=== PATIENT | male | born 1960 | race Caucasian/White ===

== ENCOUNTER 2022-03-23 06:40 | Emergency (ER) | payer OTHER ==
[2022-03-23 07:37] LABS: Urine Blood 1+ (Negative); Urine Glucose Negative (Negative); Urine Protein Negative (Negative); Urine Specific Gravity >=1.030 (1.005-1.030); Urine pH 5.5 (5.0-7.0)
[2022-03-23] MEDS ORDERED: NA CHLORIDE 0.9% 1,000 ML ONE (08:02)
[2022-03-23] MEDS ORDERED: MORPHINE 4 MG/ML SYR ONE (08:02)
[2022-03-23] MEDS ORDERED: ONDANSETRON 4 MG/2 ML VIAL ONE (08:02)
[2022-03-23 08:15] LABS: Absolute Lymphocytes (CBC) 0.9 K/uL (0.7-4.9); Hematocrit 42.4 % (39.6-49.0); Lymphocytes % 9.2 % (15.3-44.8); MCV 96.5 fL (80-100); RBC Red Blood Cell Count 4.39 M/uL (4.33-5.43)
--- NOTE | 2022-03-23 08:19 | RAD REPORT ---
EXAM DESCRIPTION: CT - Abdomen Pelvis Wo Contrast - 03/23/2022 7:41 am CLINICAL HISTORY: Abdominal pain. LLQ abdominal pain COMPARISON: No comparisons TECHNIQUE: CT imaging of the abdomen and pelvis was performed without contrast. Solid organ, bowel a nd vascular assessment is limited due to lack of IV and oral contrast. All CT scans are performed using dose optimization technique as appropriate and may include automated exposure control or mA/KV adjustment according to patient size. FINDINGS: The lower lung gregory are clear. The liver, spleen, pancreas, adrenal glands and right kidney are within normal limits for a limited n on-contrast examination.There is a 5-6 mm stone proximal left ureter with mild left hydronephrosis an d mild inflammation surrounding the left kidney. No bowel obstruction, free air, free fluid or abscess. Moderate retained stool throughout the colon. Scattered colonic diverticulosis without diverticulitis. The appendix is normal. Mild lumbosacral degenerative changes. IMPRESSION: 5-6 mm stone proximal left ureter with mild left hydronephrosis. A limited non-contrast examination was performed as detailed.
[2022-03-23 08:20] LABS: Albumin 4.1 g/dL (3.4-5.0); Bilirubin Total 0.6 mg/dL (0.2-1.0); Potassium 4.5 mmol/L (3.5-5.1)
[2022-03-23 08:39] LABS: Blood Morphology Comment NOT SEEN (NOT SEEN); Platelet Estimate DECR; White Blood Cell Scan OK (OK)
--- NOTE | 2022-03-23 10:35 | EDPHYS ---
Physician Documentation [facility] Name: Marvel Ramires Age: 61 yrs Sex: Male : 1960 Arrival Date: 03/23/2022 Time: 06:43 Bed 16 Private MD: ED Physician Charli Taylor HPI: 03/23 07:45 This 61 yrs old Male presents to ER via Ambulatory with complaints of Possible Kidney ms3 Stone. 07:45 The patient presents with abdominal pain in the left lower quadrant. Onset: The ms3 symptoms/episode began/occurred last night. The symptoms radiate to groin. Associated signs and symptoms: none. The symptoms are described as achy. Modifying factors: The symptoms are alleviated by nothing, the symptoms are aggravated by nothing. Severity of pain: At its worst the pain was severe in the emergency department the pain has improved is a 3 / 10. Historical: - Allergies: 06:57 NKDA; bb - Immunization history:: Client reports having NOT received the Covid vaccine. - Social history:: Smoking status: Patient denies any tobacco usage or history of. ROS: 07:45 Constitutional: Negative for fever, and chills. Neck: Negative for injury, pain, and ms3 swelling, Cardiovascular: Negative for chest pain, and palpitations. Respiratory: Negative for shortness of breath, cough, wheezing, and pleuritic chest pain. 07:45 Skin: Negative for injury, rash, and discoloration. 07:45 Abdomen/GI: Positive for abdominal pain, nausea and vomiting. 07:45 All other systems are negative. Exam: 07:45 Constitutional: This is a well developed, well nourished patient who is awake, alert, ms3 and in no acute distress. Neck: Trachea midline, no cervical lymphadenopathy. Supple, full range of motion without nuchal rigidity, or vertebral point tenderness. No Meningismus. Chest/axilla: Normal chest wall appearance and motion. Nontender with no deformity. Cardiovascular: Regular rate and rhythm with a normal S1 and S2. No gallops, murmurs, or rubs. Normal PMI, no JVD. No pulse deficits. Respiratory: Lungs have equal breath sounds bilaterally, clear to auscultation and percussion. No rales, rhonchi or wheezes noted. No increased work of breathing, no retractions or nasal flaring. 07:45 Skin: Warm, dry with normal turgor. Normal color with no rashes, no lesions, and no evidence of cellulitis. MS/ Extremity: Pulses equal, no cyanosis. Neurovascular intact. Full, normal range of motion. Psych: Awake, alert, with orientation to person, place and time. Behavior, mood, and affect are within normal limits. 07:45 Abdomen/GI: Inspection: abdomen appears normal, Bowel sounds: normal, Palpation: moderate abdominal tenderness, in the left lower quadrant. Vital Signs: 06:55 BP 135 / 83; Pulse 56; Resp 16 S; Temp 98.6(TE); Pulse Ox 96% on R/A; Weight 95.25 kg bb (R); Height 6 ft. 1 in. (185.42 cm) (R); Pain 3/10; 08:28 BP 124 / 78; Pulse 63; Resp 17; Temp 100; Pain 0/10; jh6 10:30 BP 109 / 62; Pulse 70; Resp 17; Temp 98.2; Pulse Ox 100% ; Pain 0/10; jh6 06:55 Body Mass Index 27.71 (95.25 kg, 185.42 cm) bb MDM: 07:23 Patient medically screened. ms3 07:45 Differential diagnosis: diverticulitis, non-specific abd pain, Nephrolithiasis. ms3 10:34 Data reviewed: vital signs, nurses notes, lab test result(s), radiologic studies, and ms3 as a result, I will discharge patient. Counseling: I had a detailed discussion with the patient and/or guardian regarding: the historical points, exam findings, and any diagnostic results supporting the discharge/admit diagnosis, lab results, radiology results, the need for outpatient follow up, to return to the emergency department if symptoms worsen or persist or if there are any questions or concerns that arise at home. ED course: On reevaluation patient symptoms improved, patient is alert and oriented x4, no apparent distress, nontoxic, ambulatory in emergency department, tolerating p.o. . 03/23 07:24 Order name: CBC with Diff; Complete Time: 09:51 ms3 03/23 07:24 Order name: CMP; Complete Time: 09:51 ms3 03/23 07:24 Order name: CT Abd/Pelvis - Without Contrast; Complete Time: 09:51 ms3 03/23 07:37 Order name: Urine Dipstick-Ancillary; Complete Time: 09:51 EDMS 03/23 08:40 Order name: CBC Smear Scan; Complete Time: 09:51 EDMS 03/23 07:24 Order name: IV Saline Lock; Complete Time: 07:58 ms3 03/23 07:24 Order name: Labs collected and sent; Complete Time: 07:58 ms3 03/23 07:24 Order name: Urine Dipstick-Ancillary (obtain specimen); Complete Time: 07:36 ms3 Administered Medications: 07:57 Drug: Zofran (Ondansetron) 4 mg Route: IVP; Site: left antecubital; [facility] 09:30 Follow up: Response: No adverse reaction [facility] 07:58 Drug: NS 0.9% 1000 ml Route: IV; Rate: 1 bolus; Site: left antecubital; [facility] 09:30 Follow up: IV Status: Completed infusion [facility] Disposition Summary: 03/23/22 10:34 Discharge Ordered Location: Home ms3 Condition: Stable ms3 Diagnosis - Kidney stone ms3 - Lower abdominal pain, unspecified ms3 Followup: ms3 - With: Ramy Becerra MD - When: 2 - 3 days - Reason: Recheck today's complaints Discharge Instructions: - Discharge Summary Sheet ms3 - Abdominal Pain, Adult ms3 - Kidney Stones, [id number] ms3 Forms: - Medication Reconciliation Form ms3 - Thank You Letter ms3 - Antibiotic Education ms3 - Prescription Opioid Use ms3 Prescriptions: - Flomax 0.4 mg Oral capsule - take 1 capsule by ORAL route once daily 1/2 hour following the same meal each ms3 day; 15 capsule; Refills: 0, Product Selection Permitted Signatures: Dispatcher [employer] Jane Paez RN RN Charli Bradford DO DO ms3 Sydnee Guadalupe RN RN jh6
--- NOTE | 2022-03-23 10:35 | ER ---
Nurse's Notes [facility] Name: Marvel Ramires Age: 61 yrs Sex: Male : 1960 Arrival Date: 03/23/2022 Time: 06:43 Bed 16 Private MD: Diagnosis: Kidney stone;Lower abdominal pain, unspecified Presentation: 03/23 06:55 Chief complaint: Patient states: "I think I might have a kidney stone" pt c/o left bb flank pain since yesterday with nausea the pain comes and goes and radiates to his scrotum. Coronavirus screen: At this time, the client does not indicate any symptoms associated with coronavirus-19. Ebola Screen: No symptoms or risks identified at this time. Initial Sepsis Screen: Does the patient meet any 2 criteria? No. Patient's initial sepsis screen is negative. Does the patient have a suspected source of infection? No. Patient's initial sepsis screen is negative. Risk Assessment: Do you want to hurt yourself or someone else? Patient reports no desire to harm self or others. Onset of symptoms was March 22, 2022. 06:55 Method Of Arrival: Ambulatory bb 06:55 Acuity: MATT 3 bb Triage Assessment: 07:37 GI: Reports. jh6 Historical: - Allergies: 06:57 NKDA; bb - Immunization history:: Client reports having NOT received the Covid vaccine. - Social history:: Smoking status: Patient denies any tobacco usage or history of. Screenin:30 Abuse screen: Denies threats or abuse. Denies injuries from another. Nutritional jh6 screening: No deficits noted. Tuberculosis screening: No symptoms or risk factors identified. Fall Risk. Assessment: 07:15 General: Appears in no apparent distress. comfortable, Behavior is calm, cooperative. jh6 Pain: Complains of pain in left mid back Pain radiates to left lower quadrant Pain currently is 3 out of 10 on a pain scale. Quality of pain is described as aching, Pain began suddenly, Is intermittent. 08:00 GI: Bowel sounds present X 4 quads. Abd is soft and non tender X 4 quads. jh6 08:28 Reassessment: Patient and/or family updated on plan of care and expected duration. Pain jh6 level reassessed. Patient is alert, oriented x 3, equal unlabored respirations, skin warm/dry/pink. Patient states feeling better. Patient states symptoms have improved. Pain: Denies pain. 09:30 Reassessment: No changes from previously documented assessment. jh6 10:50 Reassessment: Patient and/or family updated on plan of care and expected duration. Pain jh6 level reassessed. Patient is alert, oriented x 3, equal unlabored respirations, skin warm/dry/pink. Patient denies pain at this time. Patient states feeling better. Vital Signs: 06:55 BP 135 / 83; Pulse 56; Resp 16 S; Temp 98.6(TE); Pulse Ox 96% on R/A; Weight 95.25 kg bb (R); Height 6 ft. 1 in. (185.42 cm) (R); Pain 3/10; 08:28 BP 124 / 78; Pulse 63; Resp 17; Temp 100; Pain 0/10; jh6 10:30 BP 109 / 62; Pulse 70; Resp 17; Temp 98.2; Pulse Ox 100% ; Pain 0/10; jh6 06:55 Body Mass Index 27.71 (95.25 kg, 185.42 cm) ED Course: 06:43 Patient arrived in ED. ja2 06:57 Triage completed. bb 06:57 Arm band placed on Patient placed in an exam room, on a stretcher, on pulse oximetry. bb Family accompanied patient. 07:10 Charli Taylor DO is Attending Physician. ms3 07:15 Bed in low position. Call light in reach. Side rails up X 1. Adult w/ patient. jh6 07:17 Sydnee Guadalupe, RN is Primary Nurse. jh6 07:[address] jh6 07:37 Urine collected: clean catch specimen, clear. jh6 07:42 CT Abd/Pelvis - Without Contrast In Process Unspecified. EDMS 07:45 No provider procedures requiring assistance completed. Inserted saline lock: 20 gauge jh6 in left antecubital area, using aseptic technique. Blood collected. 10:32 Ramy Becerra MD is Referral Physician. ms3 10:51 IV discontinued, intact, bleeding controlled, No redness/swelling at site. Pressure jh6 dressing applied. Administered Medications: 07:57 Drug: Zofran (Ondansetron) 4 mg Route: IVP; Site: left antecubital; jh6 09:30 Follow up: Response: No adverse reaction [facility] 07:58 Drug: NS 0.9% 1000 ml Route: IV; Rate: 1 bolus; Site: left antecubital; [facility] 09:30 Follow up: IV Status: Completed infusion 6 Medication: 08:29 VIS not applicable for this client. [facility] Outcome: 10:34 Discharge ordered by . ms3 10:51 Discharged to home ambulatory. [facility] 10:51 Condition: good 10:51 Discharge instructions given to patient, family, Instructed on discharge instructions, follow up and referral plans. Demonstrated understanding of instructions, follow-up care, medications, Prescriptions given X 2. 10:52 Patient left the ED. [facility] Signatures: Dispatcher [employer] EDJane Bennett, RN RN Charli Bradford DO DO ms3 Sade Maurice Jennifer, RN RN jh6
[2022-03-23 11:30] VITALS: BP 109/62; TEMP 98.2; O2SAT 100
== END 2022-03-23 10:52 | disposition home or self-care (01) ==
LOC: EDBD → ER 06:40
DX: N20.0 Calculus of kidney (principal)
CPT/HCPCS: 85025; 36415; 81003; 80053; 74176; J7030; J2405

== ENCOUNTER 2022-03-24 12:42 | Emergency (ER) | payer OTHER ==
--- OUTSIDE RECORDS SUMMARY | 2022-03-24 12:45 | XMS REPORT | Continuity of Care Document ---
:08/26/1959 Author Organization [facility] t Address [address] [place] [address] Care Team Providers Name Role Phone Suzanne Reyes Primary Care Physician THUAN CAMARGO Attending Clinician Unavailable Lisa Sahni MA Attending Clinician Unavailable THUAN CAMARGO Attending Clinician Unavailable Abbie Lovell MA Attending Clinician Unavailable Payers Payer Name Policy Type Policy Number Effective Date Expiration Date S anil [employer] CHOICE POS [id number] 2003 00:00:00 II Problems Condition Condition Condition Status Onset Resolution Last Treating Co mments Source Name Details Category Date Date Treatment Clinician Date No known No known Disease [place] active active Health problems problems Allergies, Adverse Reactions, Alerts This patient has no known allergies or adverse reactions. Social History Social Habit Start Date Stop Date Quantity Comments Source Exposure to Not sure [facility] SARS-CoV-2 (event) Tobacco use and 2021-01-18 2021-01-[address] [facility] exposure 00:00:00 00:00:00 non-user Alcohol intake 2021-01-18 2021-01-[address] [facility] 00:00:00 00:00:00 non-drinker (finding) Sex Ass[birth year] At [birth year] [facility] 00:00:00 00:00:00 Smoking Status Start Date Stop Date Source Never smoked tobacco [facility] Medications Ordered Filled Start Stop Current Ordering Indication Dosage Frequency Signature Comments Components Source Medication Medication Date Date Medication? Clinician (SIG) Name Name omeprazole 2021-0 Yes 20mg QD Take 20 mg U T (PriLOSEC) 7-26 by mouth [facility] [address] 13:21: (one) time capsule 56 each day. Do not crush or chew. omeprazole 1-0 Yes 20mg QD Take 20 mg U T (PriLOSEC) 7-26 by mouth [facility] [address] 08:21: (one) time capsule 56 each day. Do not crush or chew. omeprazole 2021-0 Yes 20mg QD Take 20 mg U T (PriLOSEC) 7-26 by mouth [facility] [address] 08:21: (one) time capsule 56 each day. Do not crush or chew. omeprazole 1-0 Yes 20mg QD Take 20 mg U T (PriLOSEC) 6-14 by mouth [facility] [address] 13:36: (one) time capsule 33 each day. Do not crush or chew. omeprazole 1-0 Yes 20mg QD Take 20 mg U T (PriLOSEC) 6-14 by mouth [facility] [address] 13:36: (one) time capsule 33 each day. Do not crush or chew. omeprazole 1-0 Yes 20mg QD Take 20 mg U T (PriLOSEC) 6-14 by mouth [facility] [address] 13:36: (one) time capsule 33 each day. Do not crush or chew. Sod 2020-0 Yes 6645 Take 1 UT Picosulfate 6-14 bottle of [facility] -Mag Ox-Cit 00:00: clenpiq at Acd 00 5 pm. Take (Clenpiq) 2nd bottle 10-3.5-12 of clenpiq MG-GM at 10pm. -GM/160ML solution Sod 2020-0 Yes 6645 Take 1 UT Picosulfate 6-14 bottle of [facility]a [facility] -Mag Ox-Cit 00:00: clenpiq at Acd 00 5 pm. Take (Clenpiq) 2nd bottle 10-3.5-12 of clenpiq MG-GM at 10pm. -GM/160ML solution Sod 2020-0 Yes 6645 Take 1 UT Picosulfate 6-14 bottle of [facility]a [facility] -Mag Ox-Cit 00:00: clenpiq at Acd 00 5 pm. Take (Clenpiq) 2nd bottle 10-3.5-12 of clenpiq MG-GM at 10pm. -GM/160ML solution Sod 2020-0 Yes 6645 Take 1 UT Picosulfate 6-14 bottle of [facility]a [facility] -Mag Ox-Cit 00:00: clenpiq at Acd 00 5 pm. Take (Clenpiq) 2nd bottle 10-3.5-12 of clenpiq MG-GM at 10pm. -GM/160ML solution Sod 2020-0 Yes 6645 Take 1 UT Picosulfate 6-14 bottle of [facility]a [facility] -Mag Ox-Cit 00:00: clenpiq at Acd 00 5 pm. Take (Clenpiq) 2nd bottle 10-3.5-12 of clenpiq MG-GM at 10pm. -GM/160ML solution Sod 2020-0 Yes 6645 Take 1 UT Picosulfate 6-14 bottle of [facility]a [facility] -Mag Ox-Cit 00:00: clenpiq at Acd 00 5 pm. Take (Clenpiq) 2nd bottle 10-3.5-12 of clenpiq MG-GM at 10pm. -GM/160ML solution allopurinol 2020-0 Yes UT (Zyloprim) 5-15 Health 300 MG 00:00: tablet 00 allopurinol 2020-0 Yes UT (Zyloprim) 5-15 Health 300 MG 00:00: tablet 00 allopurinol 2020-0 Yes UT (Zyloprim) 5-15 Health 300 MG 00:00: tablet 00 allopurinol 2020-0 Yes UT (Zyloprim) 5-15 Health 300 MG 00:00: tablet 00 allopurinol 2020-0 Yes UT (Zyloprim) 5-15 Health 300 MG 00:00: tablet 00 allopurinol 2020-0 Yes UT (Zyloprim) 5-15 Health 300 MG 00:00: tablet 00 Bystolic 10 2020-0 Yes UT MG tablet 3-17 Health 00:00: 00 Bystolic 10 2020-0 Yes UT MG tablet 3-17 Health 00:00: 00 Bystolic 10 2020-0 Yes UT MG tablet 3-17 Health 00:00: 00 Bystolic 10 2020-0 Yes UT MG tablet 3-17 Health 00:00: 00 Bystolic 10 2020-0 Yes UT MG tablet 3-17 Health 00:00: 00 Bystolic 10 2020-0 Yes UT MG tablet 3-17 Health 00:00: 00 naproxen 2020-0 Yes continuous UT (Naprosyn) 9-25 ly if Health 500 MG 00:00: needed. tablet 00 naproxen 2020-0 Yes continuous UT (Naprosyn) 9-25 ly if Health 500 MG 00:00: needed. tablet 00 traMADol 2020-0 Yes TK 1 T PO UT (Ultram) 50 9-25 BID PRN Healt h MG tablet 00:00: 00 naproxen 2020-0 Yes continuous UT (Naprosyn) 9-25 ly if Health 500 MG 00:00: needed. tablet 00 traMADol 2020-0 Yes TK 1 T PO UT (Ultram) 50 9-25 BID PRN Healt h MG tablet 00:00: 00 naproxen 2020-0 Yes continuous UT (Naprosyn) 9-25 ly if Health 500 MG 00:00: needed. tablet 00 traMADol 2020-0 Yes TK 1 T PO UT (Ultram) 50 9-25 BID PRN Healt h MG tablet 00:00: 00 naproxen 2020-0 Yes continuous UT (Naprosyn) 9-25 ly if Health 500 MG 00:00: needed. tablet 00 naproxen 2020-0 Yes continuous UT (Naprosyn) 9-25 ly if Health 500 MG 00:00: needed. tablet 00 traMADol 2019-0 2020- No TK 1 T PO UT (Ultram) 50 9-25 07-26 BID PRN Heal th MG tablet 00:00: 00:00 00 :00 cyclobenzap 2020-0 Yes TK 1 T PO U T rine 8-14 [facility] (Flexeril) 00:00: TIMES 5 MG tablet 00 DAILY. BRIDGET cyclobenzap 2020-0 Yes TK 1 T PO U T rine 8-14 [facility] (Flexeril) 00:00: TIMES 5 MG tablet 00 DAILY. BRIDGET cyclobenzap 2020-0 Yes TK 1 T PO U T rine 8-14 [facility] (Flexeril) 00:00: TIMES 5 MG tablet 00 DAILY. BRIDGET cyclobenzap 2020-0 2020- No TK 1 T PO UT rine 8-14 -26 [facility] (Flexeril) 00:00: 00:00 TIMES 5 MG tablet 00 :00 DAILY. BRIDGET Vital Signs Vital Name Observation Time Observation Value Comments Source Heart rate 2021-03-01 13:18:00 56 /min [facility] Body temperature 2021-03-01 13:18:00 36.11 Yareli [facility] Body height 2021-03-01 13:18:00 185.4 cm [facility] Body weight 2021-03-01 13:18:00 102.15 kg [facility] BMI 2021-03-01 13:18:00 29.71 kg/m2 [facility] Systolic blood pressure 2021-03-01 13:18:00 117 mm[Hg] [facility] Diastolic blood pressure 2021-03-01 13:18:00 68 mm[Hg] [facility] Body height 2021-01-21 16:20:46 185.4 cm [facility] Body weight 2021-01-21 16:20:46 100 kg [facility] BMI 2021-01-21 16:20:46 29.09 kg/m2 [facility] Body height 2021-01-21 16:20:46 185.4 cm [facility] Body weight 2021-01-21 16:20:46 100 kg [facility] BMI 2021-01-21 16:20:46 29.09 kg/m2 [facility] Body height 2021-01-21 16:20:46 185.4 cm [facility] Body weight 2021-01-21 16:20:46 100 kg [facility] BMI 2021-01-21 16:20:46 29.09 kg/m2 [facility] Body height 2021-01-21 16:20:46 185.4 cm [facility] Body weight 2021-01-21 16:20:46 100 kg [facility] BMI 2021-01-21 16:20:46 29.09 kg/m2 [facility] Systolic blood pressure 2021-01-18 13:29:00 151 mm[Hg] [facility] Diastolic blood pressure 2021-01-18 13:29:00 78 mm[Hg] [facility] Heart rate 2021-01-18 13:29:00 55 /min [facility] Body temperature 2021-01-18 13:29:00 36.11 Yareli [facility] Respiratory rate 2021-01-18 13:29:00 18 /min [facility] Body height 2021-01-18 13:29:00 185.4 cm [facility] Body weight 2021-01-18 13:29:00 101.424 kg [facility] BMI 2021-01-18 13:29:00 29.50 kg/m2 [facility] Procedures Procedure Date / Time Performed Performing Clinician [facility] SURGICAL PATHOLOGY 2021-01-22 16:27:00 Thuan Camargo [facility] SURGICAL PATHOLOGY 2021-01-22 16:27:00 Thuan Camargo [facility] EGD 2021-01-22 00:00:00 Thuan Camargo [facility] COLONOSCOPY 2021-01-22 00:00:00 Thuan Camargo [facility] EGD 2021-01-22 00:00:00 Thuan Camargo [facility] COLONOSCOPY 2021-01-22 00:00:00 Thuan Camargo [facility] Encounters Start End Encounter Admission Attending Care Care Encounter Source Date/Time Date/Time Type Type Clinicians Facility Department ID 2021-12-01 Outpatient [facility] [id number] CT 06:42:22 [id number] [facility] 2021-01-18 Outpatient MARY JO [facility] [id number] [place] 09:04:58 THUAN [facility] 2021-03-01 2021-03-01 Office CLAUDIA Camargo [id number] 08:15:16 08:34:21 Visit Thuan DARIANA [id number] H [facility] [id number] SPECIALTY [id number] CLINIC 6 2021-02-24 2021-02-24 Abstract Lisa Sahni [facility] [id number] 00:00:00 00:00:00 Lisa Sahni [id number] [facility] [id number] 2021-01-22 2021-01-22 Outpatient MARGAUX CAMARGOSE [facility] [id number] 09:34:00 12:25:00 [facility]UAN [facility] 2021-01-20 2021-01-20 EXT [facility] OP LISA Camargo MSRDP [id number] UT 00:00:00 00:00:00 Thuan LOCATION [id number] H ealth [id number] 2021-01-20 2021-01-20 EXT H OP Mary Jo, EXT MSRDP [id number] UT 00:00:00 00:00:00 Thuan LOCATION [id number] H ealth [id number] 2021-01-19 2021-01-19 Orders Abbie Lovell [facility] [id number] UT 00:00:00 00:00:00 Only Abbie Lovell [facility] [id number] [facility] [id number] SPECIALTY [id number] CLINIC 6 2021-01-18 2021-01-18 Office Mary Jo CLAUDIA [id number] [place] 08:17:23 08:32:23 Visit Thuan [place] [id number] [facility] [id number] SPECIALTY [id number] CLINIC 6 Results Test Description Test Time Test Comments Results Result [facility] e Comments SURGICAL 2021-01-05 Diagnosis 1. ?Esophagus, [facility] PATHOLOGY 8 distal, biopsy: ? ? ? 16:27:00 -Hyperplastic squamous mucosa with features suggestive of gastroesophageal reflux. 2. ?Colon, ascending, polypectomy: ? ? ? -Hyperplastic polyp. 3. ?Colon, sigmoid, polypectomy: ? ? ? -Hyperplastic polyp. [facility] Source1. ?Distal esophagus biopsy2. ?Ascending colon polyp3. ?Sigmoid polyp [facility] InformationClinical History: Dysphagia, GERD, colon screeningOperative Procedure: EGD, colonoscopyOperative Findings: GERD, dysphagia, colon polyps, diverticulosis [facility] DescriptionSpecimen 1 "distal esophagus biopsy" consists of multiple ga tissues, less than 1 to 2 mm, all in 1A.Specimen 2 "ascending colon polyp" consists of a 6 x 3 x 2 mm ga tissue, all in 2A.Specimen 3 "sigmoid polyp" consists of a 3 x 2 x 2 mm ga tissue, all in 3A.JW 01/22/2021 15:12 [facility] DescriptionA microscopic examination has been performed and the findings are incorporated in the diagnosis above. The positive and negative controls for all histochemical and immunohistochemical stains, if performed for this case, have been reviewed and, unless otherwise noted, have been found to be appropriate. [facility] Clinical [id number] x 3Specimen examined at [facility].Final diagnosis rendered at [facility].[id number] [place], [place] ?[address]. [facility] SURGICAL 2021-01-05 Diagnosis 1. ?Esophagus, [facility] PATHOLOGY 8 distal, biopsy: ? ? ? 16:27:00 -Hyperplastic squamous mucosa with features suggestive of gastroesophageal reflux. 2. ?Colon, ascending, polypectomy: ? ? ? -Hyperplastic polyp. 3. ?Colon, sigmoid, polypectomy: ? ? ? -Hyperplastic polyp. [facility] Source1. ?Distal esophagus biopsy2. ?Ascending colon polyp3. ?Sigmoid polyp [facility]Clinical InformationClinical History: Dysphagia, GERD, colon screeningOperative Procedure: EGD, colonoscopyOperative Findings: GERD, dysphagia, colon polyps, diverticulosis [facility]ITALGross DescriptionSpecimen 1 "distal esophagus biopsy" consists of multiple ga tissues, less than 1 to 2 mm, all in 1A.Specimen 2 "ascending colon polyp" consists of a 6 x 3 x 2 mm ga tissue, all in 2A.Specimen 3 "sigmoid polyp" consists of a 3 x 2 x 2 mm ga tissue, all in 3A. 01/22/2021 15:12 [facility]ITAL[facility]scopic DescriptionA microscopic examination has been performed and the findings are incorporated in the diagnosis above. The positive and negative controls for all histochemical and immunohistochemical stains, if performed for this case, have been reviewed and, unless otherwise noted, have been found to be appropriate. [facility] Clinical [id number] x 3Specimen examined at [facility].Final diagnosis rendered at [facility].[address] [place], [place] ?[address]. [facility]
[2022-03-24] MEDS ORDERED: NA CHLORIDE 0.9% 1,000 ML ONE (13:22)
[2022-03-24] MEDS ORDERED: KETOROLAC 30 MG/ML INJ ONE (13:22)
[2022-03-24] MEDS ORDERED: ONDANSETRON 4 MG/2 ML VIAL ONE (13:27)
--- NOTE | 2022-03-24 13:54 | EDPHYS ---
Physician Documentation [facility] Name: Marvel Ramires Age: 62 yrs Sex: Male : 08/26/1959 Arrival Date: 03/24/2022 Time: 12:44 Bed 5 Private MD: ED Physician Rory Hughes HPI: 03/24 13:10 This 62 yrs old Male presents to ER via Ambulatory with complaints of Possible Kidney jh7 Stone. 13:10 Onset: The symptoms/episode began/occurred yesterday. Patient was seen and discharged jh7 by Dr. Taylor yesterday with a 5 to 6 mm left renal stone. He stated that the medication was not helping his pain and that he would like something else to manage his pain. Reports that he has an appointment with urology on Monday.. Historical: - Allergies: 13:05 NKDA; ss - Immunization history:: Client reports having NOT received the Covid vaccine. - Social history:: Smoking status: Patient denies any tobacco usage or history of. ROS: 13:10 Constitutional: Negative for fever, chills, and weight loss, Eyes: Negative for injury, jh7 pain, redness, and discharge, ENT: Negative for injury, pain, and discharge, Neck: Negative for injury, pain, and swelling, Cardiovascular: Negative for chest pain, palpitations, and edema, Respiratory: Negative for shortness of breath, cough, wheezing, and pleuritic chest pain, Back: Negative for injury and pain, : Negative for injury, bleeding, discharge, and swelling, MS/Extremity: Negative for injury and deformity, Skin: Negative for injury, rash, and discoloration, Neuro: Negative for headache, weakness, numbness, tingling, and seizure. 13:10 Abdomen/GI: Positive for abdominal pain, nausea, Negative for vomiting, diarrhea, constipation. 13:10 All other systems are negative. Exam: 13:10 Head/Face: Normocephalic, atraumatic. Neck: Trachea midline, no thyromegaly or masses jh7 palpated, and no cervical lymphadenopathy. Supple, full range of motion without nuchal rigidity, or vertebral point tenderness. No Meningismus. Cardiovascular: Regular rate and rhythm with a normal S1 and S2. No gallops, murmurs, or rubs. Normal PMI, no JVD. No pulse deficits. Respiratory: Lungs have equal breath sounds bilaterally, clear to auscultation and percussion. No rales, rhonchi or wheezes noted. No increased work of breathing, no retractions or nasal flaring. Back: No spinal tenderness. No costovertebral tenderness. Full range of motion. Skin: Warm, dry with normal turgor. Normal color with no rashes, no lesions, and no evidence of cellulitis. MS/ Extremity: Pulses equal, no cyanosis. Neurovascular intact. Full, normal range of motion. Neuro: Awake and alert, GCS 15, oriented to person, place, time, and situation. Normal gait. 13:10 Constitutional: The patient appears alert, awake, in obvious pain. 13:10 Abdomen/GI: Inspection: abdomen appears normal, Bowel sounds: normal, Palpation: mild abdominal tenderness, in the left lower quadrant. Vital Signs: 13:03 BP 145 / 63; Pulse 84; Resp 16; Temp 99.4(TE); Pulse Ox 96% on R/A; Weight 95.25 kg; ss Height 6 ft. 1 in. (185.42 cm); Pain 7/10; 13:03 Body Mass Index 27.71 (95.25 kg, 185.42 cm) ss MDM: 13:01 Patient medically screened. [facility] 14:20 Differential diagnosis: Renal stone. Data reviewed: vital signs, nurses notes. Data [facility] interpreted: Pulse oximetry: is 99 %. Interpretation: normal. Counseling: I had a detailed discussion with the patient and/or guardian regarding: the historical points, exam findings, and any diagnostic results supporting the discharge/admit diagnosis, the need for outpatient follow up, a urologist, to return to the emergency department if symptoms worsen or persist or if there are any questions or concerns that arise at home. Response to treatment: the patient's symptoms have resolved after treatment, the patient's pain is gone. ED course: The patient symptoms resolved after IV Toradol and Zofran. Informed the patient that we would prescribe him Toradol and Zofran to take for symptom relief. Advised him to keep his appointment with the urologist on Monday, and return to the ER if symptoms become severe or he develops any new concerning symptoms. The patient agreed with the plan of care.. Administered Medications: 13:16 Drug: NS 0.9% 1000 ml Route: IV; Rate: 1 bolus; Site: right antecubital; kb3 13:16 Drug: Ketorolac 30 mg Route: IVP; Site: right antecubital; kb3 13:21 Drug: Zofran (Ondansetron) 4 mg Route: IVP; Site: right antecubital; kb3 Disposition Summary: 03/24/22 13:53 Discharge Ordered Location: Home [facility] Problem: new [facility] Symptoms: have improved [facility] Condition: Stable [facility] Diagnosis - Nephrolithiasis [facility] Followup: [facility] - With: Ramy Becerra MD - When: 2 - 3 days - Reason: Further diagnostic work-up Discharge Instructions: - Discharge Summary Sheet [facility] - Kidney Stones [facility] - Dietary Guidelines to Help Prevent Kidney Stones [facility] - Laser Therapy for Kidney Stones [facility] Forms: - Medication Reconciliation Form [facility] - Thank You Letter [facility] Prescriptions: - ketorolac 10 mg Oral tablet - take 1 tablet by ORAL route every 6 hours As needed not to exceed 40mg in 24hrs [facility] for up to 5 days total use; 20 tablet; Refills: 0, Product Selection Permitted - ondansetron 4 mg Oral tablet,disintegrating - place 1 tablet by TRANSLINGUAL route 4 times per day As needed; 20 tablet; [facility] Refills: 0, Product Selection Permitted Signatures: Cindi Estes RN RN Sydnee Da Silva FNP [place] [id number] Rachael Wu RN RN kb3
--- NOTE | 2022-03-24 13:54 | ER ---
Nurse's Notes [facility] Name: Marvel Ramires Age: 62 yrs Sex: Male : 08/26/1959 Arrival Date: 03/24/2022 Time: 12:44 Bed 5 Private MD: Diagnosis: Nephrolithiasis Presentation: 03/24 13:03 Chief complaint: Patient states: DX with kidney stone yesterday and given prescriptions ss which do not seems to be helping with the pain. Pt reports he attempted to make a follow up appointment with the urologist, but they are out of the office until next Monday. Pt states, "I just can't go another night with the pain like this.". Coronavirus screen: Client denies travel out of the [place] in the last 14 days. Ebola Screen: Patient denies exposure to infectious person. Patient denies travel to an Ebola-affected area in the 21 days before illness onset. Initial Sepsis Screen: Does the patient meet any 2 criteria? No. Patient's initial sepsis screen is negative. Does the patient have a suspected source of infection? No. Patient's initial sepsis screen is negative. Risk Assessment: Do you want to hurt yourself or someone else? Patient reports no desire to harm self or others. Onset of symptoms was March 23, 2022. 13:03 Method Of Arrival: Ambulatory ss 13:03 Acuity: MATT 4 ss Historical: - Allergies: 13:05 NKDA; ss - Immunization history:: Client reports having NOT received the Covid vaccine. - Social history:: Smoking status: Patient denies any tobacco usage or history of. Screenin:27 Abuse screen: Denies threats or abuse. Denies injuries from another. Nutritional kb3 screening: No deficits noted. Tuberculosis screening: No symptoms or risk factors identified. Fall Risk None identified. Assessment: 13:26 Reassessment: No changes from previously documented assessment. General: Appears in no kb3 apparent distress. uncomfortable, Behavior is calm, cooperative. Pain: Complains of pain in left low back Pain radiates to groin. GI: Bowel sounds present X 4 quads. Abd is soft Abdomen is tender to palpation in left lower quadrant Reports nausea. : CVA tenderness noted on left Reports urinary frequency. Vital Signs: 13:03 BP 145 / 63; Pulse 84; Resp 16; Temp 99.4(TE); Pulse Ox 96% on R/A; Weight 95.25 kg; Height 6 ft. 1 in. (185.42 cm); Pain 7/10; 13:03 Body Mass Index 27.71 (95.25 kg, 185.42 cm) ED Course: 12:44 Patient arrived in ED. rg4 12:50 Sydnee Da Silva, AIDEN [facility] 7 12:50 Rory Hughes MD is Attending Physician. 7 13:05 Triage completed. ss 13:05 Arm band placed on right wrist. 13:11 Inserted saline lock: 20 gauge in right antecubital area, using aseptic technique. kb3 Blood collected. 13:27 Patient has correct armband on for positive identification. Bed in low position. Call kb3 light in reach. 13:27 No provider procedures requiring assistance completed. kb3 13:40 Rachael Wu, PURA is Primary Nurse. kb3 13:52 Ramy Becerra MD is Referral Physician. 7 14:21 IV discontinued, intact, bleeding controlled, No redness/swelling at site. Pressure ap3 dressing applied. Administered Medications: 13:16 Drug: NS 0.9% 1000 ml Route: IV; Rate: 1 bolus; Site: right antecubital; kb3 13:16 Drug: Ketorolac 30 mg Route: IVP; Site: right antecubital; kb3 13:21 Drug: Zofran (Ondansetron) 4 mg Route: IVP; Site: right antecubital; kb3 Medication: 14:21 VIS not applicable for this client. ap3 Outcome: 13:53 Discharge ordered by . 7 14:21 Discharged to home ambulatory, with family. ap3 14:21 Condition: good 14:21 Discharge instructions given to patient, family, Instructed on discharge instructions, follow up and referral plans. medication usage, Demonstrated understanding of instructions, follow-up care, medications, Prescriptions given X 2. 14:21 Patient left the ED. ap3 Signatures: Cindi Estes RN RN ss Cristiane Rojo rg4 Kate Cardoso RN RN ap3 Sydnee Da Silva, CINNAMON GRINDER CINNAMON GRINDER [facility] Rachael Wu, PURA NEVES kb3
[2022-03-24 14:43] VITALS: BP 145/63; TEMP 99.4; O2SAT 96
== END 2022-03-24 14:21 | disposition home or self-care (01) ==
LOC: ER 12:42
DX: N20.0 Calculus of kidney (principal)
CPT/HCPCS: 96375; 96374; 99284; J7030; J2405

== ENCOUNTER 2022-03-26 04:13 | Emergency (ER) | payer OTHER ==
--- OUTSIDE RECORDS SUMMARY | 2022-03-26 04:17 | XMS REPORT | Continuity of Care Document ---
:08/26/1959 Author Organization [facility] t Address [address] [place] [address] Care Team Providers Name Role Phone Suzanne Reyes Primary Care Physician THUAN CAMARGO Attending Clinician Unavailable Lisa Sahni MA Attending Clinician Unavailable THUAN CAMARGO Attending Clinician Unavailable Abbie Lovell MA Attending Clinician Unavailable Payers Payer Name Policy Type Policy Number Effective Date Expiration Date S anil [employer] CHOICE POS [id number] 2003 00:00:00 II Problems Condition Condition Condition Status Onset Resolution Last Treating Co mments Source Name Details Category Date Date Treatment Clinician Date No known No known Disease [place] active active Health problems problems Allergies, Adverse Reactions, Alerts This patient has no known allergies or adverse reactions. Social History Social Habit Start Date Stop Date Quantity Comments Source Exposure to Not sure [facility] SARS-CoV-2 (event) Tobacco use and 2021-01-18 2021-01-18 Smokeless tobacco [facility] exposure 00:00:00 00:00:00 non-user Alcohol intake 2021-01-18 2021-01-18 Lifetime [facility] 00:00:00 00:00:00 non-drinker (finding) Sex Ass[birth year] At [birth year] [facility] 00:00:00 00:00:00 Smoking Status Start Date Stop Date Source Never smoked tobacco [facility] Medications Ordered Filled Start Stop Current Ordering [...] h Body weight 2021-01-18 13:29:00 101.424 kg [facility] BMI 2021-01-18 13:29:00 29.50 kg/m2 [facility] Procedures Procedure Date / Time Performed Performing Clinician [facility] SURGICAL PATHOLOGY 2021-01-22 16:27:00 Thuan Camargo [facility] SURGICAL PATHOLOGY 2021-01-22 16:27:00 Thuan Camargo [facility] EGD 2021-01-22 00:00:00 Thuan Camargo [facility] COLONOSCOPY 2021-01-22 00:00:00 Thuan Camargo [facility] EGD 2021-01-22 00:00:00 Thuan Camargo [facility] COLONOSCOPY 2021-01-22 00:00:00 Thuan Camargo [facility] Encounters Start End Encounter Admission Attending Care Care Encounter Source Date/Time Date/Time Type Type Clinicians Facility Department ID 2021-12-01 Outpatient [facility] [id number] [place] 06:42:22 [id number] [facility] 2021-01-18 Outpatient MARY JO [facility] [id number] [place] 09:04:58 THUAN [facility] 2021-03-01 2021-03-01 Office CLAUDIA Camargo [id number] [place] 08:15:16 08:34:21 Visit Thuan DARIANA [id number] H [facility] [id number] SPECIALTY [id number] CLINIC 6 2021-02-24 2021-02-24 Abstract Lisa Sahni [facility] [id number] [place] 00:00:00 00:00:00 Lisa Sahni [id number] [facility] [id number] 2021-01-22 2021-01-22 Outpatient MARGAUX CAMARGOSE [facility] [id number] 09:34:00 12:25:00 [facility] 2021-01-20 2021-01-20 EXT [facility] OP LISA Camargo [facility] [id number] [place] 00:00:00 00:00:00 Thuan LOCATION [id number] H ealth [id number] 2021-01-20 2021-01-20 EXT H OP Mary Jo, EXT M[facility]DP [id number] [place] 00:00:00 00:00:00 Thuan LOCATION [id number] H ealth [id number] 2021-01-19 2021-01-19 Orders Abbie Lovell [facility] [id number] [place] 00:00:00 00:00:00 Only Abbie Lovell [facility] [id number] [facility] [id number] SPECIALTY [id number] CLINIC 6 2021-01-18 2021-01-18 Office Mary Jo CLAUDIA [id number] [place] 08:17:23 08:32:23 Visit Thuan [facility] [id number] [facility] [id number] SPECIALTY [id number] CLINIC 6 Results Test Description Test Time Test Comments Results Result [facility] e Comments SURGICAL 2021-01-05 Diagnosis 1. ?Esophagus, [facility] PATHOLOGY 8 distal, biopsy: ? ? ? 16:27:00 -Hyperplastic squamous mucosa with features suggestive of gastroesophageal reflux. 2. ?Colon, ascending, polypectomy: ? ? ? -Hyperplastic polyp. 3. ?Colon, sigmoid, polypectomy: ? ? ? -Hyperplastic polyp. [facility] Source1. ?Distal esophagus biopsy2. ?Ascending colon polyp3. ?Sigmoid polyp [facility] InformationClinical History: Dysphagia, GERD, colon screeningOperative Procedure: EGD, colonoscopyOperative Findings: GERD, dysphagia, colon polyps, diverticulosis [facility]Gr[facility] DescriptionSpecimen 1 "distal esophagus biopsy" consists of multiple ga tissues, less than 1 to 2 mm, all in 1A.Specimen 2 "ascending colon polyp" consists of a 6 x 3 x 2 mm ga tissue, all in 2A.Specimen 3 "sigmoid polyp" consists of a 3 x 2 x 2 mm ga tissue, all in 3A.JW 01/22/2021 15:12 [facility]ITALMicroscopic DescriptionA microscopic examination has been performed and the findings are incorporated in the diagnosis above. The positive and negative controls for all histochemical and immunohistochemical stains, if performed for this case, have been reviewed and, unless otherwise noted, have been found to be appropriate. [facility] Clinical [id number] x 3Specimen examined at [facility].Final diagnosis rendered at [facility].[address] [place], [place] ?[address]. [facility] SURGICAL 2021-01-05 Diagnosis 1. ?Esophagus, [facility] PATHOLOGY 8 distal, biopsy: ? ? ? 16:27:00 -Hyperplastic squamous mucosa with features suggestive of gastroesophageal reflux. 2. ?Colon, ascending, polypectomy: ? ? ? -Hyperplastic polyp. 3. ?Colon, sigmoid, polypectomy: ? ? ? -Hyperplastic polyp. [facility] Source1. ?Distal esophagus biopsy2. ?Ascending colon polyp3. ?Sigmoid polyp [facility]Clinical InformationClinical History: Dysphagia, GERD, colon screeningOperative Procedure: EGD, colonoscopyOperative Findings: GERD, dysphagia, colon polyps, diverticulosis [facility]PITALGross DescriptionSpecimen 1 "distal esophagus biopsy" consists of multiple ga tissues, less than 1 to 2 mm, all in 1A.Specimen 2 "ascending colon polyp" consists of a 6 x 3 x 2 mm ga tissue, all in 2A.Specimen 3 "sigmoid polyp" consists of a 3 x 2 x 2 mm ga tissue, all in 3A. 01/22/2021 15:12 [facility]ITALMicroscopic DescriptionA microscopic examination has been performed and the findings are incorporated in the diagnosis above. The positive and negative controls for all histochemical and immunohistochemical stains, if performed for this case, have been reviewed and, unless otherwise noted, have been found to be appropriate. [facility] Clinical [id number] x 3Specimen examined at [facility].Final diagnosis rendered at [facility].[address] [place], [place] ?[address]. [facility]
[2022-03-26] MEDS ORDERED: KETOROLAC 30 MG/ML INJ ONE (04:59)
[2022-03-26] MEDS ORDERED: NA CHLORIDE 0.9% 1,000 ML ONE (04:59)
[2022-03-26 05:20] LABS: Absolute Lymphocytes (CBC) 1.1 K/uL (0.7-4.9); Hematocrit 40.5 % (39.6-49.0); Lymphocytes % 7.7 % (15.3-44.8); MCV 96.9 fL (80-100); MPV 10.6 fL (7.6-11.3); RBC Red Blood Cell Count 4.18 M/uL (4.33-5.43)
[2022-03-26 05:35] LABS: Protime INR 1.36
[2022-03-26 05:44] LABS: Albumin 3.4 g/dL (3.4-5.0); Bilirubin Total 1.6 mg/dL (0.2-1.0); Protein, Total 7.2 g/dL (6.4-8.2)
--- NOTE | 2022-03-26 07:47 | RAD REPORT ---
EXAM DESCRIPTION: CT - Stone Protocol - 03/26/2022 5:40 am CLINICAL HISTORY: Flank pain, kidney stone suspected COMPARISON: Abdomen Pelvis Wo Contrast dated 03/23/2022 TECHNIQUE: Axial 3 mm thick images were obtained without oral or IV contrast. The [id number] span s the entirety of the system including uppermost abdomen and lung bases. All CT scans are performed using dose optimization technique as appropriate and may include automated exposure control or mA/KV adjustment according to patient size. FINDINGS: Mild hydronephrosis is present secondary to a 5 mm stone at the left UVJ. There is no imag ing that would suggest intervention since the March 23 study. The UVJ stone represents distal migrat ion of the proximal stone detailed March 23. No right-sided hydronephrosis. No nonobstructing calcul i of either kidney. There is a moderate amount of stranding in the perinephric fat and continuing in the retroperitoneal space along the course of the left ureter. There is thickening, stranding and trace amount of fluid a long the anterior pararenal fascia on the left. These findings have progressed since March 23. No suspicious renal masses. Isodense masses and pyelonephritis are not excluded on a stone protocol C T scan. No significant adrenal finding. Urinary bladder is contracted. No gross bladder abnormality s een. Imaged portions of the liver, spleen and pancreas show no suspicious findings on non-contrast imaging . No gallbladder or biliary tree abnormality identified. Gallstones can be occult on CT imaging. Stomach and small bowel show no acute findings. Appendicitis is not suspected. Patient has scattered diverticulosis. No diverticulitis or acute colon finding. No hernia, mass or bulky lymphadenopathy noted. Patient has a minimal amount of ascites pooling in th e dependent portion of the pelvis. No significant bony abnormality. Trace amount of left pleural effusion noted. No cardiomegaly or pericardial effusion. Minimal atelect asis or scarring changes in the posterior gutter. IMPRESSION: Mild left-sided hydronephrosis secondary to a 5 mm UVJ calculus. This represents distal migration of the stone detailed on the March 23 study. The fluid and stranding in the retroperitonea l space around the left kidney and along the course of the left ureter have increased during the inte rval. Trace amount of ascites pooling in the dependent portion of the pelvis. This could be secondary to th e stone. No other abnormality to explain the free fluid. Isodense masses and pyelonephritis are not excluded on stone protocol technique.
[2022-03-26] MEDS ORDERED: NA CHLORIDE 0.9% 50 ML ONE (07:50)
[2022-03-26] MEDS ORDERED: CEFTRIAXONE 1000 MG/VIAL ONE (07:50)
[2022-03-26 08:45] LABS: SARS-CoV-2 Antigen Rapid Res Negative (Negative)
[2022-03-26 09:24] LABS: Urine Blood 2+ (Negative); Urine Glucose Negative (Negative); Urine Protein Negative (Negative)
--- NOTE | 2022-03-26 09:35 | EDPHYS ---
Physician Documentation [facility] Name: Marvel Ramires Age: 62 yrs Sex: Male : 08/26/1959 Arrival Date: 03/26/2022 Time: 04:14 Bed 19 Private MD: ED Physician Ismael Steele HPI: 03/26 19:39 This 62 yrs old Male presents to ER via Ambulatory with complaints of Flank Pain, Fever.kdr 19:40 The third time in approximately 4 to 5 days for the same problem. He has been kdr experiencing intermittent but persistent left flank pain. Pain radiates from his left CVA area around to his left groin. He has been previous previously diagnosed with a kidney stone on that side. The size was noted to be approximately 5 mm. Today he also presents with mild low-grade fever.. Onset: The symptoms/episode began/occurred gradually, 5 day(s) ago. Severity of symptoms: At their worst the symptoms were mild moderate just prior to arrival, in the emergency department the symptoms are unchanged. The patient has experienced similar episodes in the past, a few times. The patient has been recently seen by a physician: The patient has been recently seen at the [facility] Emergency Department, this week. Historical: - Allergies: 04:36 NKDA; tw5 - PMHx: 04:36 Gout; Hypertensive disorder; tw5 - PSHx: 04:36 Tonsillectomy; back surgery x 2; tw5 - Immunization history:: Flu vaccine is not up to date. - Social history:: Smoking status: Patient denies any tobacco usage or history of. ROS: 19:40 Constitutional: Negative for weight loss. kdr 19:40 Eyes: Negative for injury, pain, redness, and discharge, ENT: Negative for injury, pain, and discharge, Neck: Negative for injury, pain, and swelling, Cardiovascular: Negative for chest pain, palpitations, and edema, Respiratory: Negative for shortness of breath, cough, wheezing, and pleuritic chest pain, Abdomen/GI: Negative for abdominal pain, nausea, vomiting, diarrhea, and constipation, Back: Negative for injury and pain, : Negative for injury, bleeding, discharge, and swelling, MS/Extremity: Negative for injury and deformity, Skin: Negative for injury, rash, and discoloration, Neuro: Negative for headache, weakness, numbness, tingling, and seizure activity. Psych: Negative for depression, anxiety, suicide ideation, homicidal ideation, and hallucinations, Allergy/Immunology: Negative for hives, rash, and allergies, Endocrine: Negative for neck swelling, polydipsia, polyuria, polyphagia, and marked weight changes, Hematologic/Lymphatic: Negative for swollen nodes, abnormal bleeding, and unusual bruising. 19:40 Constitutional: Positive for body aches, chills, fever, malaise, poor PO intake, Negative for weight loss. 19:40 Abdomen/GI: Positive for Flank pain. 19:40 Back: Positive for pain at rest, flank pain, on the left, radiated pain. Exam: 05:04 ECG was reviewed by the Attending Physician. kdr 19:40 Constitutional: This is a well developed, well nourished patient who is awake, alert, kdr and in no acute distress. Head/Face: Normocephalic, atraumatic. Eyes: Pupils equal round and reactive to light, extra-ocular motions intact. Lids and lashes normal. Conjunctiva and sclera are non-icteric and not injected. Cornea within normal limits. Periorbital areas with no swelling, redness, or edema. Neck: Trachea midline, no thyromegaly or masses palpated, and no cervical lymphadenopathy. Supple, full range of motion without nuchal rigidity, or vertebral point tenderness. No Meningismus. Chest/axilla: Normal chest wall appearance and motion. Nontender with no deformity. No lesions are appreciated. Cardiovascular: Regular rate and rhythm with a normal S1 and S2. No gallops, murmurs, or rubs. Normal PMI, no JVD. No pulse deficits. Respiratory: Lungs have equal breath sounds bilaterally, clear to auscultation and percussion. No rales, rhonchi or wheezes noted. No increased work of breathing, no retractions or nasal flaring. Abdomen/GI: Soft, non-tender, with normal bowel sounds. No distension or tympany. No guarding or rebound. No evidence of tenderness throughout. Back: No spinal tenderness. No costovertebral tenderness. Full range of motion. Skin: Warm, dry with normal turgor. Normal color with no rashes, no lesions, and no evidence of cellulitis. MS/ Extremity: Pulses equal, no cyanosis. Neurovascular intact. Full, normal range of motion. Neuro: Awake and alert, GCS 15, oriented to person, place, time, and situation. Cranial nerves II-XII grossly intact. Motor strength 5/5 in all extremities. Sensory grossly intact. Cerebellar exam normal. Normal gait. Psych: Awake, alert, with orientation to person, place and time. Behavior, mood, and affect are within normal limits. Vital Signs: 04:34 BP 153 / 71; Pulse 91; Resp 18; Temp 100.3; Pulse Ox 96% on R/A; Weight 95.25 kg; tw5 Height 6 ft. 1 in. (185.42 cm); Pain 7/10; 06:00 BP 110 / 64; Pulse 76; Resp 13; Pulse Ox 94% on R/A; ll3 07:20 BP 101 / 64; Pulse 71; Resp 14; Pulse Ox 94% on R/A; em6 08:30 BP 108 / 59; Pulse 65; Resp 14; Pulse Ox 97% on R/A; em6 09:30 BP 103 / 62; Pulse 65; Resp 13; Pulse Ox 94% on R/A; em6 10:30 BP 109 / 61; Pulse 70; Resp 18; Pulse Ox 95% on R/A; em6 04:34 Body Mass Index 27.71 (95.25 kg, 185.42 cm) tw5 MDM: 08:10 Patient medically screened. sd2 08:19 Transition of care: Care assumed from Ismael Steele MD. ED course: Plan for transfer sd2 due to not having Urology service circulation librarian this weekend. This is patient's 3rd visit in 1 week for 5 mm kidney stone with uncontrolled pain. Now with low grade fever, leukocytosis and elevated creatinine. Rocephin given. . 19:40 Data reviewed: vital signs, nurses notes, lab test result(s), radiologic studies. kdr Counseling: I had a detailed discussion with the patient and/or guardian regarding: the historical points, exam findings, and any diagnostic results supporting the discharge/admit diagnosis, lab results, radiology results, the need for outpatient follow up. 03/26 04:47 Order name: Blood Culture Adult (2) ll3 03/26 04:47 Order name: CBC with Diff; Complete Time: 06:22 ll3 03/26 04:47 Order name: CMP; Complete Time: 06:22 ll3 03/26 08:04 Interpretation: CRE 1.92. sd2 03/26 04:47 Order name: Lactate; Complete Time: 06:22 ll3 03/26 04:47 Order name: Protime (+inr); Complete Time: 06:22 ll3 03/26 04:47 Order name: Ptt, Activated; Complete Time: 06:22 ll3 03/26 04:47 Order name: Cardiac monitoring; Complete Time: 05:02 ll3 03/26 04:55 Order name: CT Stone Protocol; Complete Time: 08:01 kdr 03/26 08:16 Order name: SARS RAPID; Complete Time: 09:04 eb 03/26 09:25 Order name: Urine Dipstick-Ancillary EDMS 03/26 04:47 Order name: EKG - Nurse/Tech; Complete Time: 05:02 ll3 03/26 04:47 Order name: IV Saline Lock - Large Bore; Complete Time: 05:02 ll3 03/26 04:47 Order name: Labs collected and sent; Complete Time: 05:02 ll3 03/26 04:47 Order name: O2 Per Protocol; Complete Time: 05:02 ll3 03/26 04:47 Order name: O2 Sat Monitoring; Complete Time: 05:02 ll3 03/26 08:46 Order name: Urine Dipstick-Ancillary (obtain specimen); Complete Time: 09:25 kdr EC:04 Rate is 86 beats/min. Rhythm is regular, Sinus Rhythm with No ectopy. QRS [place] is kdr Normal. MA interval is normal. QRS interval is normal. QT interval is normal. Clinical impression: NSR w/ Non-specific ST/T Changes. Administered Medications: 05:01 Drug: Ketorolac 30 mg Route: IVP; Site: right antecubital; ll3 05:01 Drug: NS 0.9% 1000 ml Route: IV; Rate: 1000 ml; Site: right antecubital; ll3 07:30 Drug: Rocephin - (cefTRIAXone) 1 grams Route: IVPB; Infused Over: 30 mins; Site: right em6 antecubital; 08:17 Follow up: Response: No adverse reaction; IV Status: Completed infusion; IV Intake: [id number] Disposition Summary: 03/26/22 09:34 Transfer Ordered Transfer Location: [facility] kdr Reason: Higher level of care kdr Condition: Fair kdr Problem: an ongoing problem kdr Symptoms: are unchanged kdr Accepting Physician: KEREN Desai(03/26/22 10:46) em6 Diagnosis - Pyelonephritis acute kdr - Kidney Stone/ Calculus in urethra - 5 mm stone ureter kdr Forms: - Medication Reconciliation Form kdr - SBAR form kdr Signatures: Dispatcher [employer] EDMS Ismael Steele MD MD kdr Britt Montero tw5 Terence Solomon, RN RN ll3 Emily Galicia MD MD sd2 Alysia Camacho, RN RN em6 Corrections: (The following items were deleted from the chart) 04:37 04:36 Home Meds: None; 04:51 04:47 Accucheck ordered. [facility] 10:46 09:34 KEREN Desai kdr em6
--- NOTE | 2022-03-26 09:35 | ER ---
Nurse's Notes [facility] Name: Marvel Ramires Age: 62 yrs Sex: Male : 08/26/1959 Arrival Date: 03/26/2022 Time: 04:14 Bed 19 Private MD: Diagnosis: Pyelonephritis acute;Kidney Stone/ Calculus in urethra-5 mm stone ureter Presentation: 03/26 04:34 Chief complaint: Patient states: "It is a kidney stone, this is my third trip here for tw5 this. The fever is new though.". Coronavirus screen: Vaccine status: Patient reports being unvaccinated. Ebola Screen: Patient negative for fever greater than or equal to 101.5 degrees Fahrenheit, and additional compatible Ebola Virus Disease symptoms Patient denies exposure to infectious person. Patient denies travel to an Ebola-affected area in the 21 days before illness onset. Initial Sepsis Screen: Does the patient meet any 2 criteria? HR > 90 bpm. Does the patient have a suspected source of infection? Yes: Dysuria/Frequency/Urgency/UTI. Risk Assessment: Do you want to hurt yourself or someone else? Patient reports no desire to harm self or others. Onset of symptoms is unknown. 04:34 Method Of Arrival: Ambulatory tw5 04:34 Acuity: MATT 3 tw5 Triage Assessment: 04:36 General: Appears uncomfortable, Behavior is cooperative, appropriate for age. Pain: tw5 Complains of pain in left low back Pain currently is 7 out of 10 on a pain scale. Historical: - Allergies: 04:36 NKDA; tw5 - PMHx: 04:36 Gout; Hypertensive disorder; tw5 - PSHx: 04:36 Tonsillectomy; back surgery x 2; tw5 - Immunization history:: Flu vaccine is not up to date. - Social history:: Smoking status: Patient denies any tobacco usage or history of. Screenin:38 Abuse screen: Denies threats or abuse. Denies injuries from another. Nutritional tw5 screening: No deficits noted. Tuberculosis screening: No symptoms or risk factors identified. 09:18 Fall Risk IV access (20 points). Ambulatory Aid- None/Bed Rest/Nurse Assist (0 pts). em6 Gait- Normal/Bed Rest/Wheelchair (0 pts) Mental Status- Oriented to own ability (0 pts). Total Domínguez Fall Scale indicates No Risk (0-24 pts). Assessment: 04:34 General: See triage. ll3 05:30 Reassessment: No changes from previously documented assessment. Patient and/or family ll3 updated on plan of care and expected duration. Pain level reassessed. Patient is alert, oriented x 3, equal unlabored respirations, skin warm/dry/pink. 05:30 Reassessment: No changes from previously documented assessment. Patient and/or family ll3 updated on plan of care and expected duration. Pain level reassessed. Patient is alert, oriented x 3, equal unlabored respirations, skin warm/dry/pink. 07:20 General: Appears in no apparent distress. comfortable, Behavior is calm, cooperative. em6 Pain: Complains of pain in anterior aspect of left lateral abdomen Pain radiates to left low back Pain currently is 3 out of 10 on a pain scale. Neuro: Saab Agitation-Sedation Scale (RASS): 0 - Alert and Calm Level of Consciousness is awake, alert, obeys commands, Oriented to person, place, time, situation. Cardiovascular: Rhythm is sinus rhythm. Respiratory: Airway is patent Respiratory effort is even, unlabored, Respiratory pattern is regular, symmetrical, Breath sounds are clear bilaterally. GI: Abdomen is non-distended, Reports. : No signs and/or symptoms were reported regarding the genitourinary system. EENT: No signs and/or symptoms were reported regarding the EENT system. Derm: No signs and/or symptoms reported regarding the dermatologic system. Musculoskeletal: No signs and/or symptoms reported regarding the musculoskeletal system. Circulation, motion, and sensation intact. 08:20 Reassessment: Patient appears in no apparent distress at this time. No changes from em6 previously documented assessment. Patient and/or family updated on plan of care and expected duration. Pain level reassessed. 09:41 Reassessment: patient has eyes closed. chest rise noted with respirations even and em6 unlabored noted. 09:48 Reassessment: gave nurse to nurse report to caryl from [facility]. em6 10:42 Reassessment: Patient and/or family updated on plan of care and expected duration. Pain em6 level reassessed. Patient is alert, oriented x 3, equal unlabored respirations, skin warm/dry/pink. gave report to [facility] transporting patient. . Vital Signs: 04:34 BP 153 / 71; Pulse 91; Resp 18; Temp 100.3; Pulse Ox 96% on R/A; Weight 95.25 kg; tw5 Height 6 ft. 1 in. (185.42 cm); Pain 7/10; 06:00 BP 110 / 64; Pulse 76; Resp 13; Pulse Ox 94% on R/A; ll3 07:20 BP 101 / 64; Pulse 71; Resp 14; Pulse Ox 94% on R/A; em6 08:30 BP 108 / 59; Pulse 65; Resp 14; Pulse Ox 97% on R/A; em6 09:30 BP 103 / 62; Pulse 65; Resp 13; Pulse Ox 94% on R/A; em6 10:30 BP 109 / 61; Pulse 70; Resp 18; Pulse Ox 95% on R/A; em6 04:34 Body Mass Index 27.71 (95.25 kg, 185.42 cm) tw5 ED Course: 04:14 Patient arrived in ED. bp1 04:36 Triage completed. tw5 04:36 Arm band placed on left wrist. tw5 04:46 Ismael Steele MD is Attending Physician. kdr 04:50 Urine collected:. tw5 05:01 Terence Solomon RN is Primary Nurse. ll3 05:01 Inserted saline lock: 20 gauge in right antecubital area, using aseptic technique. ll3 Blood collected. started by Fernandez NEVES. 05:02 First set of blood cultures drawn by ED staff. ll3 05:02 EKG done, by ED staff, reviewed by Ismael Steele MD. ll3 05:42 CT Stone Protocol In Process Unspecified. EDMS 08:13 Attending Physician role handed off by Ismael Steele MD sd2 08:13 Emily Galicia MD is Attending Physician. sd2 08:17 initiated a transfer with Valentino Barakat from the [facility]. eb 08:20 Patient has correct armband on for positive identification. Placed in gown. Bed in low em6 position. Call light in reach. Side rails up X 1. awake overnight monitor on. Pulse ox on. NIBP on. Warm blanket given. 08:25 SARS RAPID Sent. em6 08:30 Primary Nurse role handed off by Terence Solomon RN jl7 08:[address] Brito the hospitalist loss prevention supervisor for [facility] with Dr. Cedric caballero for patient transfer consultation. 08:42 Attending Physician role handed off by Emily Galicia MD [facility] 08:42 Ismael Steele MD is Attending Physician. kdr 09:09 administrative approval given by Valentino Barakat Rn/ patient has been accepted to [facility] Room A507/ Dr. Loi Brito has accepted the patient in transfer/ report to be called to [phone]. 10:45 No provider procedures requiring assistance completed. Patient transferred, IV remains em6 in place. Administered Medications: 05:01 Drug: Ketorolac 30 mg Route: IVP; Site: right antecubital; ll3 05:01 Drug: NS 0.9% 1000 ml Route: IV; Rate: 1000 ml; Site: right antecubital; ll3 07:30 Drug: Rocephin - (cefTRIAXone) 1 grams Route: IVPB; Infused Over: 30 mins; Site: right em6 antecubital; 08:17 Follow up: Response: No adverse reaction; IV Status: Completed infusion; IV Intake: [id number] Medication: 09:19 VIS not applicable for this client. em6 Intake: 08:17 IV: 50ml; Total: 50ml. em6 Outcome: 09:34 ER care complete, transfer ordered by . kdr 10:45 Transferred by ground EMS to [facility]. em6 10:45 Condition: stable 10:45 Discharge instructions given to patient, EMS, Instructed on the need for transfer, Demonstrated understanding of instructions. 10:46 Patient left the ED. em6 Signatures: Dispatcher [employer] EDMS Ismael Steele MD MD kdr Yaakov Riddle RN RN jl7 Lin Mcgee Brittany bp1 Wood, Tiffany tw5 Terence Solomon, PUAR RN ll3 Emily Galicia MD MD sd2 Alysia Camacho RN RN em6 Corrections: (The following items were deleted from the chart) 04:37 04:36 Home Meds: None; tw5 tw5
[2022-03-26 11:12] VITALS: TEMP 100.3
[2022-03-26 11:43] VITALS: BP 109/61; O2SAT 95
--- NOTE | 2022-03-28 14:19 | EKG ---
Test Date: 2022-03-26 Test Time: 04:52:44 Isotope Technician: MEASUREMENT RESULTS: Intervals: Rate: 86 [place]: 162 QRSD: 84 QT: 346 QTc: 414 [place]: P: 57 [place]: 162 QRS: 55 T: 61 INTERPRETIVE STATEMENTS: Normal sinus rhythm Right atrial enlargement Borderline ECG No previous ECG available for comparison Electronically Signed On 03-28-22 14:18:34 CDT by Will Matt
--- NOTE | 2022-03-28 14:19 | EKG ---
Test Date: 2022-03-26 Test Time: 04:53:28 Underground Conduit Installer: MEASUREMENT RESULTS: Intervals: Rate: 86 MD: 164 QRSD: 88 QT: 342 QTc: 409 [place]: P: 69 MD: 164 QRS: 57 T: 73 INTERPRETIVE STATEMENTS: Normal sinus rhythm Nonspecific ST abnormality Abnormal ECG Compared to ECG 03/26/2022 04:52:44 ST (T wave) deviation now present Atrial abnormality no longer present Electronically Signed On 03-28-22 14:18:32 CDT by Will Matt
== END 2022-03-26 10:46 | disposition short-term general hospital (02) ==
LOC: ER 04:13
DX: N10 Acute pyelonephritis (principal); N20.2 Calculus of kidney with calculus of ureter; Z87.442 Personal history of urinary calculi; I10 Essential (primary) hypertension; Z20.822 Contact with and (suspected) exposure to COVID-19
CPT/HCPCS: 96365; 93005 ×2; 87040 ×2; 85025; 36415; 85610; 83605; 85730; 81003; 80053; 76377; 74176; 96375; 99285; 87811; J7030